=== PATIENT | male | born 1970 | race Caucasian/White ===

== ENCOUNTER → 2016-11-13 | Outpatient (CLI) | payer OTHER ==
--- NOTE | 2016-11-13 15:27 | US ---
EXAMINATION TYPE: US liver DATE OF EXAM: 11/13/2016 COMPARISON: NONE CLINICAL HISTORY: Elevated Liver Enzymes R74.8. Patient stated is taking medication for ADHD, depres justin, low testerone, asthma EXAM MEASUREMENTS: Liver Length: 13.2 cm Gallbladder Wall: 0.2 cm CBD: 0.4 cm Right Kidney: 10.5 x 6.3 x 4.4 cm Pancreas: hyperechoic Liver: hyperechoic to right renal cortex suggests fatty liver . No suspicious masses identified. Gallbladder: wnl Evidence for sonographic Paredes's sign: No CBD: wnl Right Kidney: wnl IMPRESSION: 1. No acute ultrasound abnormality.
== END | disposition home or self-care (01) ==
LOC: RADUSWWP 10:11
PROVIDERS: ATTEND Family Medicine
DX: R74.8 Abnormal levels of other serum enzymes (principal)
CPT/HCPCS: 76705